=== PATIENT | male | born 1980 | race Caucasian/White ===

== ENCOUNTER → 2017-11-23 | Outpatient (REF) | payer BC | LOC: M SFHCLERA 18:06 | DX: J02.9 Acute pharyngitis, unspecified (principal) ==

== ENCOUNTER → 2018-11-07 | Outpatient (REF) | payer BC | LOC: M SFHCLERA 15:36 | PROVIDERS: ATTEND Physician Assistant | DX: J02.9 Acute pharyngitis, unspecified (principal) ==

== ENCOUNTER → 2019-01-27 | Outpatient (CLI) | payer BC ==
--- NOTE | 2019-01-30 07:39 | SLEEPHOME ---
DATE OF PROCEDURE: 01/27/2019 ORDERED BY: Esthela Jain Diagnostic home sleep testing was performed due to concern for the obstructive sleep apnea syndrome. For testing, a nocturnal T3 respiratory monitoring device was used. Continuous record was made of pulse, oxygen saturation, airflow, chest and abdominal strain, and body position. 10 hours and 59 minutes of data were reviewed. There were 7 hours and 31 minutes marked as time in bed. During the interval marked time in bed, there were 344 respiratory events identified of 10 seconds in duration or greater for a respiratory event index of 45.7. The events were primarily obstructive, but 34 central and mixed apneas were seen. Baseline pulse rate 72. Baseline pulse rate ranged from 51 to 109. Baseline saturation was 92%. Saturations fell to 74% and the oxygen desaturation index was 35.5. IMPRESSION: Abnormal home sleep testing with repetitive respiratory events and oxygen desaturations to 74% with a respiratory event index of 45.7 is consistent with the obstructive sleep apnea syndrome. RECOMMENDATION: The patient should be encouraged to undergo formal sleep evaluation and in-laboratory pressure titration.
== END ==
LOC: M SLEEP HO 11:50
PROVIDERS: ATTEND Nurse Practitioner Family
DX: R40.0 Somnolence (principal)

== ENCOUNTER → 2019-09-16 | Outpatient (CLI) | payer BC ==
[2019-09-16 09:53] LABS: BASO # 0.1 10^3/uL (0.0-0.2); EOS # 0.2 10^3/uL (0.0-0.5); EOS % 3.4 % (0.0-3.0); HEMATOCRIT 47.5 % (42.0-52.0); HEMOGLOBIN 15.5 g/dl (13.5-17.5); LYMPH # 2.1 10^3/uL (1.5-5.0); LYMPH % 39.4 % (24.0-44.0); MEAN CORPUSCULAR HEMOGLOBIN 30.3 pg (27.0-33.0); MEAN CORPUSCULAR HGB CONC 32.6 g/dl (32.0-36.5); MEAN CORPUSCULAR VOLUME 92.8 fl (80.0-96.0); MONO # 0.6 10^3/uL (0.0-0.8); NEUTROPHILS # 2.3 10^3/uL (1.5-8.5); PLATELET COUNT, AUTOMATED 292 10^3/uL (150-450); RED BLOOD COUNT 5.12 10^6/uL (4.30-6.10); WHITE BLOOD COUNT 5.3 10^3/uL (4.0-10.0)
[2019-09-16 10:27] LABS: ALBUMIN 4.3 GM/DL (3.2-5.2); ALT/SGPT 96 U/L (12-78); BILIRUBIN,TOTAL 0.7 MG/DL (0.2-1.0); BLOOD UREA NITROGEN 16 MG/DL (7-18); CALCIUM LEVEL 9.1 MG/DL (8.5-10.1); CARBON DIOXIDE LEVEL 27 MEQ/L (21-32); CHLORIDE LEVEL 107 MEQ/L (98-107); CHOLESTEROL LEVEL 228 MG/DL (<200); CHOLESTEROL RISK RATIO 3.931 (<5); CREATININE FOR GFR 1.18 MG/DL (0.70-1.30); FREE T4 1.05 NG/DL (0.76-1.46); GLOMERULAR FILTRATION RATE > 60.0 (>60); GLUCOSE, FASTING 99 MG/DL (70-100); HDL CHOLESTEROL 58 MG/DL (>40); LDL CHOLESTEROL 127 MG/DL (<100); NON-HDL-C 170 MG/DL; POTASSIUM SERUM 4.7 MEQ/L (3.5-5.1); SODIUM LEVEL 139 MEQ/L (136-145); THYROID STIMULATING HORMONE 0.959 uIU/ML (0.358-3.740); TOTAL PROTEIN 7.6 GM/DL (6.4-8.2); TRIGLYCERIDES LEVEL 215 MG/DL (<150)
== END ==
LOC: M LAB 08:42
PROVIDERS: ATTEND Physician Assistant
DX: R03.0 Elevated blood-pressure reading, without diagnosis of hypertension (principal)

== ENCOUNTER → 2022-02-22 | Outpatient (CLI) | payer BC ==
[~2022-02-22] MED LIST: IBUP80TA
== END ==
LOC: M LABSMTC 10:16
PROVIDERS: ATTEND Anesthesiology
DX: Z01.812 Encounter for preprocedural laboratory examination (principal); Z20.822 Contact with and (suspected) exposure to COVID-19

== ENCOUNTER 2022-02-27 07:07 | Day surgery (SDC) | payer BC, OTHER ==
[~2022-02-27] VITALS: Ht 180.3 cm; Wt 113.4 kg
[~2022-02-27 07:07] MED LIST changes: +LR 1,000 ML IV ONE; +MIDAZOLAM INJ 2MG/2ML VIAL (J2250 PER 1MG) IV PRN; +fentaNYL 100 MCG/2 ML INJECTION IV PRN
[2022-02-27] MEDS ORDERED: ceFAZolin 2 GM/D5W 50 ML IV BAG (J0690 PER 500MG) As Ordered ONE (07:28)
[2022-02-27] MEDS ORDERED: LIDOCAINE 1% MDV 20ML VIAL XX ONE (07:45)
[2022-02-27] MEDS ORDERED: dexameTHASONE 10MG/1ML VIAL PRES.FREE (J1100 PER 1MG) XX ONE (07:45)
[2022-02-27] MEDS ORDERED: ROPIvacaine 0.5% 30ML INJECTION (J2795 PER 1MG) XX ONE (07:45)
[2022-02-27] MEDS ORDERED: ceFAZolin SOD 2 GM in IV 1 EA IV ONE (08:25)
[2022-02-27] MEDS ORDERED: BUPIVACAINE HCL 0.25% 30ML VIAL As Ordered ONE (08:33)
[2022-02-27] MEDS ORDERED: BACITRACIN OINTMENT 30GM TUBE As Ordered ONE (08:33)
[2022-02-27] MEDS ORDERED: LIDOCAINE W/EPINEPHRINE 1% 20ML VIAL As Ordered ONE (08:40)
[2022-02-27] MEDS ORDERED: LIDOCAINE 2% 100MG/5ML SDV (FOR ANES.) As Ordered ONE (08:48)
[2022-02-27] MEDS ORDERED: propofoL 200 MG/20 ML VIAL As Ordered ONE ×2 (08:48→09:33)
[2022-02-27] MEDS ORDERED: dexameTHASONE 4 MG/ML 1ML VIAL (J1100 PER 1MG) As Ordered ONE (08:48)
[2022-02-27] MEDS ORDERED: ROCURONIUM BROMIDE 50 MG/5 ML VIAL As Ordered ONE (08:48)
[2022-02-27] MEDS ORDERED: fentaNYL 250 MCG/5 ML INJECTION As Ordered ONE (08:49)
[2022-02-27] MEDS ORDERED: MIDAZOLAM INJ 2MG/2ML VIAL (J2250 PER 1MG) As Ordered ONE (08:49)
[2022-02-27] MEDS ORDERED: METOCLOPRAMIDE INJ 10MG/2ML VIAL (J2765 PER 1) As Ordered ONE (10:07)
[2022-02-27] MEDS ORDERED: ONDANSETRON 4MG/2ML VIAL As Ordered ONE (10:07)
[2022-02-27] MEDS ORDERED: SUGAMMADEX SODIUM 500 MG/5 ML VIAL (BRIDION) As Ordered ONE (10:07)
[2022-02-27] MEDS ORDERED: ACETAMINOPHEN 1000MG 100ML IV BTL (OFIRMEV) (J0131 PER 10MG) As Ordered ONE (10:07)
[2022-02-27] MEDS ORDERED: KETOROLAC 60MG 2ML VIAL As Ordered ONE (10:09)
[2022-02-27] MEDS ORDERED: OXYC1TAB23 PO (11:14)
[2022-02-27] MEDS ORDERED: fentaNYL 100 MCG/2 ML INJECTION IV PRN (11:25)
[2022-02-27] MEDS ORDERED: ONDANSETRON 4MG/2ML VIAL IV PRN (11:25)
[2022-02-27] MEDS ORDERED: HYDROMORPHONE HCL 0.5 MG/ 0.5 ML SYRINGE (J1170 PER 1) IV PRN (11:25)
[2022-02-27] MEDS ORDERED: LR 1,000 ML IV SCH (11:25)
[2022-02-27] MEDS ORDERED: oxyCODONE 5MG TAB PO PRN (11:25)
[2022-02-27 12:29] VITALS: BP 119/68
== END 2022-02-27 12:34 | disposition home or self-care (01) ==
LOC: M SDC 07:07
PROVIDERS: ATTEND Orthopaedic Surgery Hand Surgery
DX: S46.211A Strain of muscle, fascia and tendon of other parts of biceps, right arm, initial encounter (principal); M66.821 Spontaneous rupture of other tendons, right upper arm; Y92.89 Other specified places as the place of occurrence of the external cause; Y93.H3 Activity, building and construction; Y99.0 Civilian activity done for income or pay; G47.33 Obstructive sleep apnea (adult) (pediatric)
CPT/HCPCS: 24342; 64415; 76000; C1713; J0131; J0690; J1100; J1885; J2250; J2405; J2765; J3010

== ENCOUNTER → 2022-03-09 | Outpatient (CLI) | payer OTHER ==
[~2022-03-09] MED LIST changes: -LR 1,000 ML IV ONE; -MIDAZOLAM INJ 2MG/2ML VIAL (J2250 PER 1MG) IV PRN; +OXYC1TAB23 PO; -fentaNYL 100 MCG/2 ML INJECTION IV PRN
== END ==
LOC: M SOG 08:04
PROVIDERS: ATTEND Physician Assistant
DX: S46.211A Strain of muscle, fascia and tendon of other parts of biceps, right arm, initial encounter (principal); X58.XXXA Exposure to other specified factors, initial encounter; Y92.9 Unspecified place or not applicable; Y93.9 Activity, unspecified; Y99.9 Unspecified external cause status

== ENCOUNTER → 2022-03-21 | Outpatient (RCR) | payer OTHER | LOC: M PT 03-14 09:09 | PROVIDERS: ATTEND Orthopaedic Surgery Hand Surgery | DX: S46.211D Strain of muscle, fascia and tendon of other parts of biceps, right arm, subsequent encounter (principal) ==

== ENCOUNTER → 2022-04-20 | Outpatient (RCR) | payer OTHER | LOC: M PT 03-29 10:22 | PROVIDERS: ATTEND Orthopaedic Surgery Hand Surgery | DX: M66.821 Spontaneous rupture of other tendons, right upper arm (principal) ==

== ENCOUNTER 2022-05-18 09:14 | Outpatient (RCR) | payer OTHER | END 2022-05-21 | LOC: M PT 09:14 | PROVIDERS: ATTEND Orthopaedic Surgery Hand Surgery | DX: M66.821 Spontaneous rupture of other tendons, right upper arm (principal) ==

== ENCOUNTER 2022-05-30 10:00 | Outpatient (RCR) | payer OTHER | END 2022-06-21 | LOC: M PT 10:00 | PROVIDERS: ATTEND Orthopaedic Surgery Hand Surgery | DX: M66.821 Spontaneous rupture of other tendons, right upper arm (principal) ==